=== PATIENT | male | born 2000 | race Caucasian/White ===

== ENCOUNTER 2018-03-24 10:26 | Emergency (ER) | payer OTHER ==
[~2018-03-24] VITALS: Ht 176.5 cm; Wt 85.3 kg
[2018-03-24 10:31] VITALS: TEMP 36.5; Ht 176.5 cm; Wt 85.3 kg
[2018-03-24] MEDS ORDERED: CYCLOBENZAPRINE HCL 10 MG TAB PO STA (11:10)
[2018-03-24] MEDS ORDERED: KETOROLAC TROMETHAMINE 60 MG/2 ML VIAL IM STA (11:10)
--- NOTE | 2018-03-24 12:11 | DIAGNOSTIC IMAGING REPORT ---
THORACIC SPINE 3 VIEWS HISTORY: MID BACK PAIN COMPARISON: Scoliosis series 05/25/2007. FINDINGS: There is no fracture. No subluxation. Disc spaces are preserved. Paraspinal soft tissues are unremarkable. Minimal dextroscoliosis of the thoracic spine which has improved. IMPRESSION: No fracture or subluxation within the thoracic spine. Electronically signed by: Tavon Gomez M.D. 03/24/2018 12:09 PM Dictated Date/Time: 03/24/2018 12:07 PM
[2018-03-24 12:25] VITALS: BP 110/55; PULSE 71; O2SAT 98
--- NOTE | 2018-03-24 12:32 | EMERGENCY ROOM VISIT NOTE ---
ED Visit Note First contact with patient: 10:42 CHIEF COMPLAINT: Mid back pain since this morning HISTORY OF PRESENT ILLNESS: Patient is a 18-year-old male who presents emergency department for evaluation of mid back pain. He reports that he has pain on a daily basis that he attributes to work, states that this is mild and tolerable. He does not normally have to take anything for his pain. This morning however he woke up with more significant pain in his mid back, he notes in the region between his shoulder blades. It does not radiate. There is no seated seated chest pain, palpitations, shortness of breath, numbness, tingling or weakness into the extremities. He has not taken any medications, nor perform any interventions for his symptoms. He does do a lot of heavy lifting for work, but denies any specific injury. He believes that he has pulled muscles in his back before and is not sure if this is similar. Pain is worse with movement. He describes it as a dull pain at rest and a sharp pain when he moves and rates it a 6/10. He denies any calf or leg pain or swelling or other DVT or PE risk factors. REVIEW OF SYSTEMS: Review of systems as per HPI. All other systems reviewed were negative. 10 systems reviewed. PMH: Electronic medical records are reviewed and summarized as above/below. See Problem List. SOCIAL HISTORY: Patient lives at home with his girlfriend. He uses chewing tobacco, smokes cigarettes daily. Denies alcohol use. PHYSICAL EXAM: Vital Signs: Reviewed Nurse's notes. CONSTITUTIONAL: Patient is a well-appearing 18-year-old male who is awake and alert and sitting on the chair at the bedside in no acute distress. He does have slight discomfort with position changes. NECK: No bruits auscultated. Supple without lymphadenopathy. No thyromegaly. No meningeal signs. Full active range of motion without discomfort. CARDIOVASCULAR: Regular rate and rhythm. Peripheral pulses easily palpable. RESPIRATORY: Breath sounds equal and clear to auscultation. Full and equal chest expansion without accessory muscle use or retractions. ABDOMEN: Bowel sounds are present. Abdomen is soft, nontender and nondistended. INTEGUMENTARY: No lesions or rash, normal skin turgor. LYMPH: No lymphadenopathy. SPINE: Examination of the patient's back does not demonstrate any ecchymosis, abrasions or outward signs of trauma. No erythema, increased warmth or induration. Patient has midline discomfort to palpation over the mid thoracic spinous processes as well as in the thoracic paraspinous muscle tenderness and rhomboid distribution. There is no pain over the cervical spinous processes of the lumbar spinous processes. There is no pain over the SI joint or the sciatic notch. He has increased pain with range of motion including rotation and flexion. EXTREMITIES: Chronic deformity of the left hand is noted. Strength to resisted shoulder flexion/abduction, elbow flexion/extension, 5/5 bilaterally. Upper extremity DTRs are equal and symmetrical bilaterally. Distal pulses are easily palpable. Sensation light touch is intact over the upper extremities bilaterally. EMERGENCY DEPARTMENT COURSE: The patient was seen and evaluated as above. Old records were reviewed. Patient was reviewed in the [facility] Prescription Drug Monitoring Program, and there were no red flags noted. Patient was treated with Toradol 60 mg IM and Flexeril 10 mg orally. Thoracic spine x-rays were obtained and were negative for acute fracture or bony abnormality. The patient was reassessed and made aware of the results of his x-rays. He was reassured. I suspect his pain is likely muscular or ligamentous in nature. He was encouraged heat and use anti-inflammatory medicines. He declined a prescription for muscle relaxers. He does not have any physical exam findings to suspect acute cord compression, I do not have any reason to suspect epidural abscess or hematoma. Patient rated his discomfort a 4/10 at discharge. Medication reconciliation: I attest that I have personally reviewed the patient' s current medication list. Blood pressure screening : Patient was found to have normal blood pressure on screening and does not require follow-up. THORACIC SPINE 3 VIEWS HISTORY: MID BACK PAIN COMPARISON: Scoliosis series 05/25/2007. FINDINGS: There is no fracture. No subluxation. Disc spaces are preserved. Paraspinal soft tissues are unremarkable. Minimal dextroscoliosis of the thoracic spine which has improved. IMPRESSION: No fracture or subluxation within the thoracic spine. Problem List Medical Problems: (1) Congenital Cleft Hand Status: Chronic (2) No significant medical problems Status: Chronic Current/Historical Medications No Active Prescriptions or Reported Meds Allergies Coded Allergies: Amoxicillin (Verified Allergy, Unknown, RASH, 03/24/18) Vital Signs Date Time Temp Pulse Resp B/P (MAP) Pulse Ox O2 Delivery O2 Flow Rate FiO2 03/24/18 12:25 71 18 110/55 98 Room Air 03/24/18 10:31 36.5 88 18 120/74 97 Room Air Medications Administered Medications (Trade) Dose Ordered Sig/Liliana Route Start Time Stop Time Status Last Admin Dose Admin Ketorolac Tromethamine (Toradol Inj) 60 mg NOW STAT IM 03/24/18 11:10 03/24/18 11:12 DC 03/24/18 11:20 60 MG Cyclobenzaprine HCl (Flexeril Tab) 10 mg NOW STAT PO 03/24/18 11:10 03/24/18 11:12 DC 03/24/18 11:20 10 MG Departure Information Impression Primary Impression: Mid back pain Prescriptions No Active Prescriptions or Reported Meds Referrals No Doctor, Assigned (PCP) Patient Instructions [facility] Additional Instructions DO NOT drive, drink alcohol, operate machinery, or perform dangerous activities today. You were given medications in the ER that can affect your ability to safely function or operate a vehicle. Ibuprofen(Motrin, Advil) may be used for fever or pain. Use 600mg every six hours as needed. Take with food. Avoid using more than 2400mg in a 24 hour period. Do not use 2400mg per day for more than three consecutive days without physician direction. Prolonged inappropriate use can lead to stomach upset or ulcers. This medication can be taken if you need to drive, work, or perform activities which may be dangerous when taking narcotic pain medication. (AND/OR) Acetaminophen(Tylenol) may be used for fever or pain. Use 1000mg every six hours as needed. Avoid using more than 3000mg in a 24 hour period. This medication can be taken if you need to drive, work, or perform activities which may be dangerous when taking narcotic pain medication. Rest and avoid heavy lifting until your symptoms resolve and then gradually return to full activity. A good rule of thumb is if it hurts your back to perform a certain activity, then it should be avoided until you are healthy again. A heating pad, warm compresses, or a hot shower may help with tight muscles and can be done several times a day as needed. Continue current medications. Return to the ER immediately for any numbness, tingling, severe pain, loss of control of your bowels or bladder, inability to walk, or as needed. Follow up with your primary care physician within 3-5 days for a recheck of your current condition.
== END 2018-03-24 12:40 | disposition home or self-care (01) ==
LOC: C.EDB 10:28 → C.EDA 12:40
DX: M54.6 Pain in thoracic spine (principal); F17.200 Nicotine dependence, unspecified, uncomplicated; Z88.1 Allergy status to other antibiotic agents